=== PATIENT | male | born 1955 | race Caucasian/White ===

== ENCOUNTER 2021-10-25 08:53 | Observation (INO) ==
[2021-10-25] MEDS ORDERED: REMDESIVIR 100 MG in NS 250 ML IV 250 ML IV ONE (09:00)
[2021-10-25 12:04] LABS: BASOPHILS # (AUTO) 0.1 X10^3/uL (0.0-0.1); BASOPHILS % (AUTO) 0.5 % (0.2-1.0); EOSINOPHILS % (AUTO) 0.1 % (0.9-2.9); HEMATOCRIT 33.3 % (42.0-54.0); HEMOGLOBIN 10.9 g/dL (13.5-18.0); LYMPHOCYTES # (AUTO) 1.4 X10^3/uL (1.3-2.9); LYMPHOCYTES % (AUTO) 10.6 % (21.0-51.0); MEAN CORPUSCULAR HEMOGLOBIN 26.8 pg (27.0-34.0); MEAN CORPUSCULAR HGB CONC 32.6 g/dL (33.0-35.0); MEAN PLATELET VOLUME 8.8 fL (7.4-11.0); MONOCYTES # (AUTO) 3.8 x10^3/uL (0.3-0.8); MONOCYTES % (AUTO) 28.2 % (0.0-13.0); NEUTROPHILS # (AUTO) 8.2 x10^3/uL (2.2-4.8); NEUTROPHILS % (AUTO) 60.6 % (42.0-75.0); RED BLOOD COUNT 4.06 X10^6/uL (4.7-6.0); RED CELL DISTRIBUTION WIDTH 15.7 % (11.6-16.5); WHITE BLOOD COUNT 13.6 X10^3/uL (3.6-10.0)
[2021-10-25 12:32] LABS: ALANINE AMINOTRANSFERASE 20 Units/L (12-78); ALBUMIN 1.9 g/dL (3.4-5.0); ALKALINE PHOSPHATASE 302 Units/L (46-116); ASPARTATE AMINO TRANSFERASE 30 Units/L (15-37); BLOOD UREA NITROGEN 13 mg/dL (7-18); CALCIUM 11.1 mg/dL (8.5-10.1); CHLORIDE 99 mmol/L (98-107); CKMB % 3.7 % (<4); COR CA(FOR HYPOALB) 12.8 mg/dL (8.5-10.1); COR NA(FOR HYPERGLY) 140 mmol/L (136-145); CREATINE KINASE 27 Units/L (39-308); CREATINE KINASE MB < 1.0 ng/mL (0-4.0); CREATININE 0.78 mg/dL (0.70-1.30); SODIUM 137 mmol/L (136-145); TOTAL PROTEIN 8.1 g/dL (6.4-8.2); eGFR NON BLACK RACES > 60 (>60)
[2021-10-25] MEDS ORDERED: NovoLIN R (or HumuLIN R) SC PRN (12:38)
[2021-10-25] MEDS ORDERED: TYLENOL 325 MG TAB PO PRN (12:38)
[2021-10-25] MEDS ORDERED: FLEXERIL TAB 10 MG PO PRN (13:48)
--- NOTE | 2021-10-25 13:52 | RAD ---
HISTORY:COVID-19 positiveStudy: Single view chestComparison:NoneFindings:There is a possible right pneumothorax versus prominent skin fold. Lungs are otherwise clear. Heart size is normal. No effusion. Soft tissues are intact.IMPRESSION:Possible right apical pneumothorax. Chest CT recommended for further evaluation.Electronically signed by: VARSHA LONDON (Oct 25, 2021 13:51:02)
[2021-10-25] MEDS ORDERED: FLOMAX PO SCH (14:00)
[2021-10-25 14:01] VITALS: BMI 18.9
[2021-10-25] MEDS ORDERED: NS 100 ML IV 100 ML ONE (14:02)
[2021-10-25 14:04] LABS: BAND NEUTROPHILS % 8 % (0-10); METAMYELOCYTES % 8; PLATELET MORPHOLOGY COMMENT NORMAL (NORMAL)
[2021-10-25 14:05] LABS: HYPOCHROMASIA SLIGHT
[2021-10-25] MEDS: TENORMIN PO SCH (14:15)
[2021-10-25] MEDS: VITAMIN D3 25 mcg (1,000 UNITS) PO SCH (14:15)
[2021-10-25] MEDS: LR 1,000 ML IV 1,000 ML IV SCH (14:16)
[2021-10-25] MEDS ORDERED: REMDESIVIR 200 MG in NS 100 ML IV 140 ML IV ONE (14:33)
[2021-10-25] MEDS ORDERED: SOLU-Medrol 125 MG VIAL IVP ONE (14:34)
[2021-10-25] MEDS ORDERED: BENADRYL INJ 50 MG VIAL IV ONE (14:34)
[2021-10-25] MEDS ORDERED: REMDESIVIR 200 MG in NS 250 ML IV 250 ML IV NR (15:00)
--- NOTE | 2021-10-25 15:09 | CT ---
EXAM: CTA CHEST WITH INTRAVENOUS CONTRASTHISTORY: Elevated D-dimer.TECHNIQUE: Spiral axial CT images are obtained through the chest with the administration of intravenous contrast. Coronal, sagittal and 3D MIP images are reformatted.DOSIMETRY: Total DLP 575.5 mGycm; CTDI 34.8 mGyCOMPARISON: CXR dated October 25, 2021.FINDINGS:CARDIOVASCULAR: There is no evidence for pulmonary embolic disease. The heart size and mediastinal vascular structures are within normal limits. There is no significant aortic or coronary atherosclerosis seen. No thoracic aortic aneurysm or dissection is noted.MEDIASTINUM AND KEMAR: No mass lesion, emphysema, or abnormal fluid collection is seen. There is nonspecific shotty mediastinal and hilar lymphadenopathy, presumed reactive lymphadenopathy.LUNGS: There is no acute parenchymal infiltrate, lung nodule, or endobronchial obstructing lesion seen. No pleural effusion or pneumothorax is evident.CHEST WALL: There are no chest wall lesions seen. Multilevel DDD is seen throughout the middle and distal thoracic spine. The visualized bony structures are within normal limits. No axillary lymphadenopathy is noted.UPPER ABDOMEN: Limited views through the upper abdomen demonstrate no gross acute abnormality. There is an approximately 3.6 cm exophytic posterior left renal cyst. Nonspecific shotty superior periceliac lymphadenopathy, with an approximately 1.9 cm x 1.5 cm lymph node identified (axial image 146). Splenomegaly (16.5 cm CC); nonspecific finding; rule out lymphoma.IMPRESSION:1. No evidence for pulmonary embolic disease.2. No evidence for aortic aneurysm or aortic dissection.3. No acute parenchymal infiltrate, pleural effusion, endobronchial obstructing lesion or pneumothorax seen.4. Nonspecific shotty mediastinal and hilar lymphadenopathy.5. Nonspecific shotty superior periceliac lymphadenopathy, with an approximately 1.9 cm x 1.5 cm lymph node identified (axial image 146).6. Splenomegaly (16.5 cm CC); nonspecific finding; rule out lymphoma.Electronically signed by: Marissa Donahue (Oct 25, 2021 15:07:39)
[2021-10-25] MEDS ORDERED: ROBITUSSIN DM PO PRN (15:10)
[2021-10-25] MEDS ORDERED: TESSALON PERLES PO PRN (15:10)
[2021-10-25] MEDS: VITAMIN A PO SCH (16:00)
[2021-10-25] MEDS: VITAMIN C PO SCH (16:00)
--- NOTE | 2021-10-25 16:04 | DR.H&P ---
H&P History & Physical for Day of: H&P Date: 10/25/21 Chief Complaint Chief Complaint: cough, weakness, positive covid test Allergies Allergies Allergy/AdvReac Type Severity Reaction Status Date / Time Penicillins Allergy Verified 10/25/21 12:53 History of Present Illness History of Present Illness: Mr Garcia is a 66y/o male with a PMH of HTN, Type 2 DM and PE presented with worsening cough, fever and generalized weakness. He did a at home covid test today which was positive. He reports being sick for the past 2 days. Denies known exposure. Denies sputum, SOB or chest pain. He reports feeling weak with any exertion and not able to walk without assistance for the past week. 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 He had biopsy and PET scan done earlier this week with Dr Baez, awaiting results. Patient has been having work-up for this leg mass for the past 4-6 weeks. [facility]. He reports wt loss 30-40 lbs in the past 4-6 weeks. He reports normal appetite, denies N/V/D. He is currently on room air with sats above 95%. Patient denies prev hx of COVID infection, he is fully vaccinated. Labs/imaging reviewed CTA- negative for infiltrate, effusion or PE Plan: Admit to ICU protocol for COVID-19. Start Remdesivir, nebs, pulmicort and IS. Monitor respiratory status closely. Oxygen prn to keep sats > 92%. Start vitamins. Resume home medications. Start diabetic diet. Start hydration. Dr Val blunt has been consulted for the left leg mass. He does not plan on doing any intervention at this time until patient recovers from covid infection. Check anemia panel. Monitor AM labs/imaging. Past Medical History Past Medical History: Anemia, Diabetes and Hypertension Additional Medical History: PE Past Surgical History Surgical History: Other Family History Family Medical History: [place] Social History Does patient currently use any type of tobacco product: No Have you used tobacco products in the last 12 months: No Type of Tobacco Use: None Does any household member use tobacco: No Prescription drug monitoring program results: PDMP reviewed and no concerns identified Medications Home Medications: Penicillins Allergy (Verified 10/25/21 12:53) CONTINUE taking the following medications alogliptin 25 mg PO DAILY 10/25/21 [History] amlodipine 5 mg PO BID 10/25/21 [History] atenolol 100 mg PO DAILY 10/25/21 [History] cetirizine 10 mg PO DAILY 10/25/21 [History] cholecalciferol (vitamin D3) 25 mcg PO DAILY 10/25/21 [History] cyclobenzaprine 10 mg PO TID PRN 10/25/21 [History] empagliflozin 25 mg PO DAILY 10/25/21 [History] glipizide 5 mg PO BID 10/25/21 [History] metformin 500 mg PO BID 10/25/21 [History] oxycodone-acetaminophen 1 tab PO Q6H 10/25/21 [History] rivaroxaban 10 mg PO DAILY 10/25/21 [History] rivaroxaban 10 mg PO DAILY 10/25/21 [History] tamsulosin 0.4 mg PO DAILY 10/25/21 [History] Labs Result Diagrams: 10/25/21 11:45 10/25/21 11:45 Labs: Laboratory WBC 13.6 X10^3/uL (3.6-10.0) H 10/25/21 11:45 RBC 4.06 X10^6/uL (4.7-6.0) L 10/25/21 11:45 Hgb 10.9 g/dL (13.5-18.0) L 10/25/21 11:45 Hct 33.3 % (42.0-54.0) L 10/25/21 11:45 MCV 82.0 fL (80.0-100.0) 10/25/21 11:45 MCH 26.8 pg (27.0-34.0) L 10/25/21 11:45 MCHC 32.6 g/dL (33.0-35.0) L 10/25/21 11:45 RDW 15.7 % (11.6-16.5) 10/25/21 11:45 Plt Count 210 X10^3/uL (150.0-450.0) 10/25/21 11:45 Plt Count Comment Adequate (ADEQUATE) 10/25/21 11:45 MPV 8.8 fL (7.4-11.0) 10/25/21 11:45 Neut % (Auto) 60.6 % (42.0-75.0) 10/25/21 11:45 Lymph % (Auto) 10.6 % (21.0-51.0) L 10/25/21 11:45 [place] % (Auto) 28.2 % (0.0-13.0) H 10/25/21 11:45 Eos % (Auto) 0.1 % (0.9-2.9) L 10/25/21 11:45 Baso % (Auto) 0.5 % (0.2-1.0) 10/25/21 11:45 Neut # (Auto) 8.2 x10^3/uL (2.2-4.8) H 10/25/21 11:45 Lymph # (Auto) 1.4 X10^3/uL (1.3-2.9) 10/25/21 11:45 [place] # (Auto) 3.8 x10^3/uL (0.3-0.8) H 10/25/21 11:45 Eos # (Auto) 0.0 x10^3/uL (0.0-0.2) 10/25/21 11:45 Baso # (Auto) 0.1 X10^3/uL (0.0-0.1) 10/25/21 11:45 Absolute Nucleated RBC 0.0 /100WBC 10/25/21 11:45 Total Counted 100 10/25/21 11:45 Neutrophils % (Manual) 30 % (39-76) L 10/25/21 11:45 Band Neutrophils % 8 % (0-10) 10/25/21 11:45 Lymphocytes % (Manual) 32 % (13-43) 10/25/21 11:45 Monocytes % (Manual) 22 % (4-9) H 10/25/21 11:45 Metamyelocytes % 8 10/25/21 11:45 Plt Morphology Comment Normal (NORMAL) 10/25/21 11:45 RBC Morphology Abnormal (NORMAL) 10/25/21 11:45 Hypochromasia Slight A 10/25/21 11:45 D-Dimer 2.55 ug/ml (0.0-0.57) H* 10/25/21 11:45 Sodium 137 mmol/L (136-145) 10/25/21 11:45 Corrected Sodium 140 mmol/L (136-145) 10/25/21 11:45 Potassium 5.0 mmol/L (3.5-5.1) 10/25/21 11:45 Chloride 99 mmol/L (98-107) 10/25/21 11:45 Carbon Dioxide 29.0 mmol/L (21-32) 10/25/21 11:45 BUN 13 mg/dL (7-18) 10/25/21 11:45 Creatinine 0.78 mg/dL (0.70-1.30) 10/25/21 11:45 Est GFR (MDRD) Af Amer > 60 (>60) 10/25/21 11:45 Est GFR (MDRD) Non-Af > 60 (>60) 10/25/21 11:45 Glucose 212 mg/dL (65-99) H 10/25/21 11:45 Calcium 11.1 mg/dL (8.5-10.1) H 10/25/21 11:45 Corrected Calcium 12.8 mg/dL (8.5-10.1) H 10/25/21 11:45 Total Bilirubin 0.40 mg/dL (0.2-1.0) 10/25/21 11:45 AST 30 Units/L (15-37) 10/25/21 11:45 ALT 20 Units/L (12-78) 10/25/21 11:45 Alkaline Phosphatase 302 Units/L (46-116) H 10/25/21 11:45 Creatine Kinase 27 Units/L (39-308) L 10/25/21 11:45 CK-MB (CK-2) < 1.0 ng/mL (0-4.0) 10/25/21 11:45 CK/CKMB % Calc 3.7 % (<4) 10/25/21 11:45 Troponin I High Sens < 4.0 ng/L (4.0-60.0) L 10/25/21 11:45 C-Reactive Protein 311.50 mg/L (0-3.0) H 10/25/21 11:45 Total Protein 8.1 g/dL (6.4-8.2) 10/25/21 11:45 Albumin 1.9 g/dL (3.4-5.0) L 10/25/21 11:45 Globulin 6.2 g/dL (2.5-4.5) H 10/25/21 11:45 Albumin/Globulin Ratio 0.3 Ratio (1.1-2.1) L 10/25/21 11:45 Review of Systems Constitutional: Fever, Chills, Weakness and Malaise Eyes: No Symptoms Reported ENT: Nose Congestion and Throat Pain Respiratory: Cough, Dry and SOB with Excertion Cardiovascular: No Symptoms Reported Gastrointestinal: No Symptoms Reported Genitourinary: No Symptoms Reported Musculoskeletal: Leg Pain Skin: No Symptoms Reported Neurological: No Symptoms Reported Physical Exam Vital Signs: Temperature 100.0 F Pulse Rate [Apical] 104 Respiratory Rate 28 Blood Pressure [Right Arm] 107/62 O2 Sat by Pulse Oximetry 96 Oriented: Normal Eyes: Normal Ear: Normal Nose: Normal Throat: Dry Respiratory: Clear Throughout Cardiovascular: Normal Auscultation: Bowel Sounds: Normal Palpation: Normal Tenderness: Normal Skin: Normal Musculoskeletal: Left and Leg (mass noted on the left thigh area, limited leg ROM ) Psychiatric: Normal Mood Description: Appropriate Affect: Normal Speech Pattern: Clear and Appropriate Assessment/Plan (1) COVID-19: Status: Acute (2) Generalized weakness: Status: Acute (3) Anemia: Qualifiers: Anemia type: unspecified type Qualified Code(s): D64.9 - Anemia, unspecified Status: Acute (4) Leg mass: Qualifiers: Laterality: left Qualified Code(s): R22.42 - Localized swelling, mass and lump, left lower limb Status: Acute (5) Sarcoma: Status: Acute (6) HTN (hypertension): Qualifiers: Hypertension type: primary hypertension Qualified Code(s): I10 - Essential (primary) hypertension Status: Acute (7) Type 2 diabetes mellitus: Qualifiers: Diabetes mellitus complication status: without complication Diabetes mellitus assisted insulin use: without assisted use Qualified Code(s): E11.9 - Type 2 diabetes mellitus without complications Status: Acute Review H&P Reviewed: Yes Patient was examined?: Yes
[2021-10-25] MEDS: PERCOCET TAB 5/325 MG PO SCH (18:00)
[2021-10-25] MEDS: SNACK - Diabetic Appropriate PO SCH (20:00)
[2021-10-25] MEDS: PULMICORT NEB TX 0.5 MG NEB SCH (20:25)
[2021-10-25] MEDS: XARELTO PO SCH (20:42)
[2021-10-25] MEDS: GLUCOTROL PO SCH (20:42)
[2021-10-25] MEDS ORDERED: DUONEB 0.5 MG/3 MG (3 mL) NEB SCH (21:00)
--- NOTE | 2021-10-25 21:16 | DR.CONSULT ---
CONSULT Consultation for Day of: Date: 10/25/21 Chief Complaint Chief Complaint: Generalized weakness and cough. 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 Allergies Allergies Allergy/AdvReac Type Severity Reaction Status Date / Time Penicillins Allergy Verified 10/25/21 12:53 History of Present Illness History of Present Illness: 66 year old male being evaluated by me for a mass to the upper outer thigh approximately 15 by 10 by 8 cm. 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 He underwent core needle biopsy of this in my office on Friday of this week . PET CT scan was done Friday and the results should show no obvious metastatic disease however the left thigh is markedly positive. Question of L-3 osteoarthritis and recommended MRI for this. Patient was to see me in follow up tomorrow but his daughter called saying that he had generalized weakness and could not get out of bed. Home test for covid-19 was positive . Patient admitted for inpatient treatment of Covid positive disease . 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 Pathology is still pending. Past Medical History Past Medical History: Anemia, Coronary Artery Disease, Diabetes and Hypertension Additional Medical History: PE, hx of CVA Past Surgical History Surgical History: Other Family History Family Medical History: [place] Social History Does patient currently use any type of tobacco product: No Have you used tobacco products in the last 12 months: No Type of Tobacco Use: None Does any household member use tobacco: No Medications Home Medications: Penicillins Allergy (Verified 10/25/21 12:53) CONTINUE taking the following medications alogliptin 25 mg PO DAILY 10/25/21 [History] amlodipine 5 mg PO BID 10/25/21 [History] atenolol 100 mg PO DAILY 10/25/21 [History] cetirizine 10 mg PO DAILY 10/25/21 [History] cholecalciferol (vitamin D3) 25 mcg PO DAILY 10/25/21 [History] cyclobenzaprine 10 mg PO TID PRN 10/25/21 [History] empagliflozin 25 mg PO DAILY 10/25/21 [History] glipizide 5 mg PO BID 10/25/21 [History] metformin 500 mg PO BID 10/25/21 [History] oxycodone-acetaminophen 1 tab PO Q6H 10/25/21 [History] rivaroxaban 10 mg PO DAILY 10/25/21 [History] rivaroxaban 10 mg PO DAILY 10/25/21 [History] tamsulosin 0.4 mg PO DAILY 10/25/21 [History] Review of Systems Constitutional: See HPI Eyes: No Symptoms Reported ENT: No Symptoms Reported Respiratory: Cough Cardiovascular: No Symptoms Reported and Light Headedness Gastrointestinal: No Symptoms Reported Genitourinary: No Symptoms Reported Musculoskeletal: Leg Pain (left upper outer thigh Mass ) Skin: No Symptoms Reported Neurological: No Symptoms Reported Physical Exam Vital Signs: Temperature 100.0 F Pulse Rate [Apical] 103 Respiratory Rate 17 Blood Pressure [Right Arm] 108/67 O2 Sat by Pulse Oximetry 94 Oriented: Normal, Time, Person and Place Eyes: Normal Ear: Normal Throat: Normal Respiratory: Rhonchi Throughout Cardiovascular: Normal : Normal Auscultation: Bowel Sounds: Normal Palpation: Normal Tenderness: Normal Skin: Normal Musculoskeletal: Thigh (large left thigh mass) Psychiatric: Normal Mood Description: Calm Speech Pattern: Clear Plan (1) COVID-19: Status: Acute Plan: Remdesivir and steroids (2) Generalized weakness: Status: Acute (3) Anemia: Status: Acute Qualifiers: Anemia type: unspecified type Qualified Code(s): D64.9 - Anemia, unspecified (4) Leg mass: Status: Acute Qualifiers: Laterality: left Qualified Code(s): R22.42 - Localized swelling, mass and lump, left lower limb (5) Sarcoma: Status: Acute Plan: awake biopsy results . Willplan resection when covid negative (6) HTN (hypertension): Status: Acute Qualifiers: Hypertension type: primary hypertension Qualified Code(s): I10 - Essential (primary) hypertension Plan: home medications (7) Type 2 diabetes mellitus: Status: Acute Qualifiers: Diabetes mellitus complication status: without complication Diabetes mellitus jail insulin use: without jail use Qualified Code(s): E11.9 - Type 2 diabetes mellitus without complications Plan: treat as per Hospital service (8) History of pulmonary embolus (PE): Status: Acute Plan: continue Eliquis
[2021-10-26] MEDS: PERCOCET TAB 5/325 MG PO SCH ×5 (00:30→22:00)
[2021-10-26] MEDS: LR 1,000 ML IV 1,000 ML IV SCH (03:14)
[2021-10-26 05:31] LABS: BASOPHILS # (AUTO) 0.1 X10^3/uL (0.0-0.1); BASOPHILS % (AUTO) 0.9 % (0.2-1.0); EOSINOPHILS % (AUTO) 0.1 % (0.9-2.9); HEMATOCRIT 28.3 % (42.0-54.0); HEMOGLOBIN 9.4 g/dL (13.5-18.0); LYMPHOCYTES # (AUTO) 1.6 X10^3/uL (1.3-2.9); LYMPHOCYTES % (AUTO) 18.9 % (21.0-51.0); MEAN CORPUSCULAR HGB CONC 33.2 g/dL (33.0-35.0); MEAN CORPUSCULAR VOLUME 81.6 fL (80.0-100.0); MEAN PLATELET VOLUME 8.7 fL (7.4-11.0); MONOCYTES # (AUTO) 3.1 x10^3/uL (0.3-0.8); MONOCYTES % (AUTO) 35.5 % (0.0-13.0); NEUTROPHILS # (AUTO) 3.9 x10^3/uL (2.2-4.8); NEUTROPHILS % (AUTO) 44.6 % (42.0-75.0); RED BLOOD COUNT 3.47 X10^6/uL (4.7-6.0); WHITE BLOOD COUNT 8.7 X10^3/uL (3.6-10.0)
[2021-10-26 05:47] LABS: ALANINE AMINOTRANSFERASE 17 Units/L (12-78); ALBUMIN 1.7 g/dL (3.4-5.0); ALKALINE PHOSPHATASE 233 Units/L (46-116); ASPARTATE AMINO TRANSFERASE 29 Units/L (15-37); BLOOD UREA NITROGEN 12 mg/dL (7-18); CALCIUM 10.2 mg/dL (8.5-10.1); CARBON DIOXIDE 28.6 mmol/L (21-32); CHLORIDE 103 mmol/L (98-107); COR NA(FOR HYPERGLY) 140 mmol/L (136-145); CREATININE 0.72 mg/dL (0.70-1.30); SODIUM 140 mmol/L (136-145); TOTAL PROTEIN 6.9 g/dL (6.4-8.2); eGFR NON BLACK RACES > 60 (>60)
[2021-10-26] MEDS: VITAMIN A PO SCH (09:02)
[2021-10-26] MEDS: XARELTO PO SCH (09:02)
[2021-10-26] MEDS: GLUCOTROL PO SCH ×2 (09:02→20:51)
[2021-10-26] MEDS: REMDESIVIR 100 MG in NS 250 ML IV 250 ML IV SCH (09:02)
[2021-10-26] MEDS: ALOGLIPTIN 25 MG PO SCH (09:02)
[2021-10-26] MEDS: PULMICORT NEB TX 0.5 MG NEB SCH ×2 (09:02→20:36)
[2021-10-26] MEDS: TENORMIN PO SCH (09:02)
[2021-10-26] MEDS: VITAMIN D3 25 mcg (1,000 UNITS) PO SCH (09:02)
--- NOTE | 2021-10-26 09:40 | PCM.PROG ---
Progress Note Progress Note for Day of Date of Exam: 10/26/21 Subjective Subjective: Patient seen at bedside, no acute events overnight. He states he feels better this morning. He remains on room air with sats > 92%. He has been coughing up mucus after getting the neb treatments. Denies SOB. He has been afebrile overnight. Denies N/V/D. He still feels weak, not able to get out of bed without assistance. Labs reviewed Plan: continue IV Remdesivir, will DC IVF. Patient has been tolerating oral intake, normal renal function. Continue nebs, pulmicort and IS. Order sputum Cx. Follow recommendations from Dr Baez, patient has mentioned about getting an MRI today. Will check with Dr Baez. He plans to do the surgery next Thurs to remove the left leg soft tissue mass. PT/OT as tolerated. Monitor AM labs/imaging. Past Medical Family Social History Past Med/Fam/Surg Hx: No changes since H&P Allergies: Allergies Penicillins Allergy (Verified 10/25/21 12:53) Review of Systems ROS: No change since H&P Vital Signs and I&O's Vital Signs: Temperature 98.8 F Pulse Rate [Apical] 103 Pulse Rate 105 Respiratory Rate 24 Blood Pressure [Right Arm] 108/62 O2 Sat by Pulse Oximetry 96 Intake and Output: Intake & Output 10/23/21 10/24/21 10/25/21 10/26/21 23:59 23:59 23:59 23:59 Intake Total 1400 / 1400 995 / 995 Output Total 775 / 775 275 / 275 Balance 625 / 625 720 / 720 Physical Exam Oriented: Normal Eyes: Normal Ear: Normal Nose: Normal Throat: Normal Respiratory: Normal Cardiovascular: Normal Auscultation: Bowel Sounds: Normal Tenderness: Normal Skin: Normal Musculoskeletal: Thigh (large left thigh mass) Psychiatric: Normal Mood Description: Calm Affect: Normal Speech Pattern: Clear Laboratory and Diagnostics Result Diagrams: 10/26/21 04:55 10/26/21 04:55 Labs: Laboratory WBC 8.7 X10^3/uL (3.6-10.0) 10/26/21 04:55 RBC 3.47 X10^6/uL (4.7-6.0) L 10/26/21 04:55 Hgb 9.4 g/dL (13.5-18.0) L 10/26/21 04:55 Hct 28.3 % (42.0-54.0) L 10/26/21 04:55 MCV 81.6 fL (80.0-100.0) 10/26/21 04:55 MCH 27.0 pg (27.0-34.0) 10/26/21 04:55 MCHC 33.2 g/dL (33.0-35.0) 10/26/21 04:55 RDW 16.0 % (11.6-16.5) 10/26/21 04:55 Plt Count 149 X10^3/uL (150.0-450.0) L 10/26/21 04:55 Plt Count Comment Cancelled 10/26/21 04:55 MPV 8.7 fL (7.4-11.0) 10/26/21 04:55 Neut % (Auto) 44.6 % (42.0-75.0) 10/26/21 04:55 Lymph % (Auto) 18.9 % (21.0-51.0) L 10/26/21 04:55 [place] % (Auto) 35.5 % (0.0-13.0) H 10/26/21 04:55 Eos % (Auto) 0.1 % (0.9-2.9) L 10/26/21 04:55 Baso % (Auto) 0.9 % (0.2-1.0) 10/26/21 04:55 Neut # (Auto) 3.9 x10^3/uL (2.2-4.8) 10/26/21 04:55 Lymph # (Auto) 1.6 X10^3/uL (1.3-2.9) 10/26/21 04:55 [place] # (Auto) 3.1 x10^3/uL (0.3-0.8) H 10/26/21 04:55 Eos # (Auto) 0.0 x10^3/uL (0.0-0.2) 10/26/21 04:55 Baso # (Auto) 0.1 X10^3/uL (0.0-0.1) 10/26/21 04:55 Absolute Nucleated RBC 0.1 /100WBC 10/26/21 04:55 Total Counted Cancelled 10/26/21 04:55 Neutrophils % (Manual) Cancelled 10/26/21 04:55 Band Neutrophils % Cancelled 10/26/21 04:55 Lymphocytes % (Manual) Cancelled 10/26/21 04:55 Monocytes % (Manual) Cancelled 10/26/21 04:55 Eosinophils % (Manual) Cancelled 10/26/21 04:55 Basophils % (Manual) Cancelled 10/26/21 04:55 Metamyelocytes % Cancelled 10/26/21 04:55 Myelocytes % Cancelled 10/26/21 04:55 Promyelocytes % Cancelled 10/26/21 04:55 Nucleated RBCs Cancelled 10/26/21 04:55 Atypical Lymphocytes Cancelled 10/26/21 04:55 Blast Cells Cancelled 10/26/21 04:55 Smudge Cells Cancelled 10/26/21 04:55 Toxic Granulation Cancelled 10/26/21 04:55 Dohle Bodies Cancelled 10/26/21 04:55 Yanely Rods Cancelled 10/26/21 04:55 Plt Clumps, EDTA Cancelled 10/26/21 04:55 Giant Platelets Cancelled 10/26/21 04:55 Plt Morphology Comment Cancelled 10/26/21 04:55 RBC Morphology Cancelled 10/26/21 04:55 Dimorphic RBCs Cancelled 10/26/21 04:55 Polychromasia Cancelled 10/26/21 04:55 Hypochromasia Cancelled 10/26/21 04:55 Poikilocytosis Cancelled 10/26/21 04:55 Basophilic Stippling Cancelled 10/26/21 04:55 Anisocytosis Cancelled 10/26/21 04:55 Microcytosis Cancelled 10/26/21 04:55 Macrocytosis Cancelled 10/26/21 04:55 Spherocytes Cancelled 10/26/21 04:55 Pappenheimer Bodies Cancelled 10/26/21 04:55 Sickle Cells Cancelled 10/26/21 04:55 Target Cells Cancelled 10/26/21 04:55 Tear Drop Cells Cancelled 10/26/21 04:55 Ovalocytes Cancelled 10/26/21 04:55 Stomatocytes Cancelled 10/26/21 04:55 Helmet Cells Cancelled 10/26/21 04:55 [place] Bodies Cancelled 10/26/21 04:55 [place] Rings Cancelled 10/26/21 04:55 [place] Cells Cancelled 10/26/21 04:55 Crenated Cell Cancelled 10/26/21 04:55 Acanthocytes (Spur) Cancelled 10/26/21 04:55 [place] Cancelled 10/26/21 04:55 Schistocytes Cancelled 10/26/21 04:55 D-Dimer 2.55 ug/ml (0.0-0.57) H* 10/25/21 11:45 Sodium 140 mmol/L (136-145) 10/26/21 04:55 Corrected Sodium 140 mmol/L (136-145) 10/26/21 04:55 Potassium 3.8 mmol/L (3.5-5.1) 10/26/21 04:55 Chloride 103 mmol/L (98-107) 10/26/21 04:55 Carbon Dioxide 28.6 mmol/L (21-32) 10/26/21 04:55 BUN 12 mg/dL (7-18) 10/26/21 04:55 Creatinine 0.72 mg/dL (0.70-1.30) 10/26/21 04:55 Est GFR (MDRD) Af Amer > 60 (>60) 10/26/21 04:55 Est GFR (MDRD) Non-Af > 60 (>60) 10/26/21 04:55 Glucose 119 mg/dL (65-99) H 10/26/21 04:55 POC Glucose (mg/dL) 161 mg/dL (65-99) H 10/25/21 19:58 Calcium 10.2 mg/dL (8.5-10.1) H 10/26/21 04:55 Corrected Calcium 12.0 mg/dL (8.5-10.1) H 10/26/21 04:55 Iron 23 ug/dL (50-175) L 10/25/21 11:45 Transferrin 156 mg/dL (202-364) L 10/25/21 11:45 Ferritin 3486 ng/mL (26-388) H 10/25/21 11:45 Total Bilirubin 0.30 mg/dL (0.2-1.0) 10/26/21 04:55 AST 29 Units/L (15-37) 10/26/21 04:55 ALT 17 Units/L (12-78) 10/26/21 04:55 Alkaline Phosphatase 233 Units/L (46-116) H 10/26/21 04:55 Creatine Kinase 27 Units/L (39-308) L 10/25/21 11:45 CK-MB (CK-2) < 1.0 ng/mL (0-4.0) 10/25/21 11:45 CK/CKMB % Calc 3.7 % (<4) 10/25/21 11:45 Troponin I High Sens < 4.0 ng/L (4.0-60.0) L 10/25/21 11:45 C-Reactive Protein 230.70 mg/L (0-3.0) H 10/26/21 04:55 Total Protein 6.9 g/dL (6.4-8.2) 10/26/21 04:55 Albumin 1.7 g/dL (3.4-5.0) L 10/26/21 04:55 Globulin 5.2 g/dL (2.5-4.5) H 10/26/21 04:55 Albumin/Globulin Ratio 0.3 Ratio (1.1-2.1) L 10/26/21 04:55 Vitamin B12 831 pg/mL (193-986) 10/25/21 11:45 Folate 6.2 ng/mL (>8.6) L 10/25/21 11:45 Plan (1) COVID-19: Status: Acute (2) Generalized weakness: Status: Acute (3) Anemia: Status: Acute Qualifiers: Anemia type: unspecified type Qualified Code(s): D64.9 - Anemia, unspecified (4) Leg mass: Status: Acute Qualifiers: Laterality: left Qualified Code(s): R22.42 - Localized swelling, mass and lump, left lower limb (5) Sarcoma: Status: Acute (6) HTN (hypertension): Status: Acute Qualifiers: Hypertension type: primary hypertension Qualified Code(s): I10 - Essential (primary) hypertension (7) Type 2 diabetes mellitus: Status: Acute Qualifiers: Diabetes mellitus complication status: without complication Diabetes mellitus usp insulin use: without terminal manager use Qualified Code(s): E11.9 - Type 2 diabetes mellitus without complications (8) History of pulmonary embolus (PE): Status: Acute
[2021-10-26] MEDS: VITAMIN C PO SCH (10:32)
[2021-10-26] MEDS: DUONEB 0.5 MG/3 MG (3 mL) NEB SCH ×2 (14:08→20:36)
--- NOTE | 2021-10-26 16:12 | MRI ---
HISTORYQUESTIONABLE CARCINOMA WITH METASTASIS, chronic low back pain, no known injurySTUDYMRI LUMBAR W W/O IV contrastCOMPARISONNoneTECHNIQUEMultiplan ar multisequence MRI of the lumbar spine was obtained without and with IV contrast. 19 cc MultiHance IV contrast.FINDINGSThe conus terminates at the L1 level. No spondylolisthesis. No compression fracture is seen. There is abnormal signal present within the S1 and S2 segments. The small foci of measure approximately 1.5 and 0.9 cm in greatest sagittal dimension. The have a stippled appearance suggesting possible benign hemangioma are mildly edematous on STIR series. Following contrast administration, there is mild enhancement of these lesions, which is not unexpected for benign hemangioma. Correlation with nuclear medicine bone scan is recommended.There is red marrow conversion in the bones. Fatty degenerative endplate changes are seen at L2-3 and L1-2. There is no abnormal enhancement of the conus or filum terminale. Probable benign renal cysts are partially included. Recommend confirmation with contrast enhanced CT of the abdomen and pelvis.T12 -- L1: No significant stenosis.L1 -- L2: Facet arthropathy is seen with no posterior element hypertrophy. There is mild right central disc bulge causing slight thecal sac effacement.L2 -- L3: Facet arthropathy is seen without posterior element hypertrophy. Mild posterior osteophytes are seen. Little neural foraminal narrowing is seen, right greater than left. There is slight thecal sac effacement.L3 -- L4: Mild facet arthropathy and posterior element hypertrophy. Likely mild broad central disc bulge. Little central canal and neural foraminal narrowing is seen.L4 -- L5: Mild posterior element hypertrophy is seen, right greater than left. There is mild central disc bulge. Mild thecal sac effacement is seen. Mild neural foraminal narrowing is seen.L5 -- S1:Mild facet hypertrophy is seen, left greater than right. Possible mild central disc bulge. Little thecal sac effacement. Moderate left-sided and mild right-sided neural foraminal narrowing is seen.IMPRESSIONProbable benign hemangioma at the S1 and S2 levels. Recommend confirmation with nuclear medicine bone scan as signal characteristics are slightly atypical.Probable cysts in the kidneys. Recommend further evaluation with contrast enhanced CT of the abdomen and pelvis.Mild facet arthropathy is seen in the lumbar spine with mild disc bulges. No disc herniations are seen. No thecal sac or nerve root compression is seen.Electronically signed by: Bora Raygoza (Oct 26, 2021 16:10:55)
[2021-10-26] MEDS: SNACK - Diabetic Appropriate PO SCH (20:00)
[2021-10-26] MEDS: FLOMAX PO SCH (20:51)
[2021-10-27 04:22] VITALS: BP 107/65
[2021-10-27] MEDS: DUONEB 0.5 MG/3 MG (3 mL) NEB SCH ×3 (05:13→14:53)
[2021-10-27 05:17] LABS: BASOPHILS # (AUTO) 0.1 X10^3/uL (0.0-0.1); BASOPHILS % (AUTO) 0.9 % (0.2-1.0); EOSINOPHILS % (AUTO) 0.1 % (0.9-2.9); HEMATOCRIT 25.8 % (42.0-54.0); HEMOGLOBIN 8.5 g/dL (13.5-18.0); LYMPHOCYTES # (AUTO) 1.4 X10^3/uL (1.3-2.9); LYMPHOCYTES % (AUTO) 20.1 % (21.0-51.0); MEAN CORPUSCULAR HGB CONC 33.1 g/dL (33.0-35.0); MEAN CORPUSCULAR VOLUME 81.4 fL (80.0-100.0); MEAN PLATELET VOLUME 8.8 fL (7.4-11.0); MONOCYTES # (AUTO) 2.6 x10^3/uL (0.3-0.8); MONOCYTES % (AUTO) 37.6 % (0.0-13.0); NEUTROPHILS # (AUTO) 2.8 x10^3/uL (2.2-4.8); NEUTROPHILS % (AUTO) 41.3 % (42.0-75.0); RED BLOOD COUNT 3.17 X10^6/uL (4.7-6.0); WHITE BLOOD COUNT 6.9 X10^3/uL (3.6-10.0)
[2021-10-27 05:26] LABS: ALANINE AMINOTRANSFERASE 16 Units/L (12-78); ALBUMIN 1.6 g/dL (3.4-5.0); ALKALINE PHOSPHATASE 204 Units/L (46-116); ASPARTATE AMINO TRANSFERASE 31 Units/L (15-37); BLOOD UREA NITROGEN 11 mg/dL (7-18); CALCIUM 9.7 mg/dL (8.5-10.1); CARBON DIOXIDE 28.3 mmol/L (21-32); CHLORIDE 105 mmol/L (98-107); COR CA(FOR HYPOALB) 11.6 mg/dL (8.5-10.1); COR NA(FOR HYPERGLY) 142 mmol/L (136-145); CREATININE 0.61 mg/dL (0.70-1.30); SODIUM 141 mmol/L (136-145); TOTAL PROTEIN 6.4 g/dL (6.4-8.2); eGFR NON BLACK RACES > 60 (>60)
[2021-10-27] MEDS: VITAMIN D3 25 mcg (1,000 UNITS) PO SCH (08:15)
[2021-10-27] MEDS: PERCOCET TAB 5/325 MG PO SCH ×2 (08:15→13:36)
[2021-10-27] MEDS: ALOGLIPTIN 25 MG PO SCH (08:15)
[2021-10-27] MEDS: XARELTO PO SCH (08:15)
[2021-10-27] MEDS: REMDESIVIR 100 MG in NS 250 ML IV 250 ML IV SCH (08:54)
[2021-10-27] MEDS: FLOMAX PO SCH (08:54)
[2021-10-27] MEDS: GLUCOTROL PO SCH (08:54)
[2021-10-27] MEDS: TENORMIN PO SCH (08:54)
[2021-10-27] MEDS: VITAMIN A PO SCH (08:55)
[2021-10-27] MEDS: VITAMIN C PO SCH (08:55)
[2021-10-27] MEDS: PULMICORT NEB TX 0.5 MG NEB SCH (09:15)
--- NOTE | 2021-10-27 12:23 | W.DIS.FURT ---
Summary of Discharge Discharge Summary of Date Date of Exam: 10/27/21 Admission Date Date of Admission: 10/25/21 Admission Diagnosis Hospital Course: Mr Garcia is a 66y/o male with a PMH of HTN, Type 2 DM and PE presented with worsening cough, fever and generalized weakness. He did a at home covid test today which was positive. He reports being sick for the past 2 days. Denies known exposure. Denies sputum, SOB or chest pain. He reports feeling weak with any exertion and not able to walk without assistance for the past week. 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 He had biopsy and PET scan done earlier this week with Dr Baez, awaiting results. Patient has been having work-up for this leg mass for the past 4-6 weeks. [facility]. He reports wt loss 30-40 lbs in the past 4-6 weeks. He reports normal appetite, denies N/V/D. He is currently on room air with sats above 95%. Patient denies prev hx of COVID infection, he is fully vaccinated. In the ER, CXR was normal, CTA was negative for PE or any infiltrate. He was admitted to ICU with covid protocol. He was started on IV Remdesivir, nebs, pulmicort and IS. He did not require any oxygen. Dr Baez was also consulted and recommended to continue treating covid infection and will plan on doing surgery the following week for his upper leg mass. Patient did well, labs were monitored daily and electrolytes replaced as needed. PT/OT was also consulted and patient was able to ambulate and transfer with assistance. Patient was noted to have anemia, denied active bleeding. His iron was low so he was started on iron replacement. He was stable for discharge. He will f/u with Dr Baez as scheduled. Vital Signs: Vital Signs (72 hours) 10/25/21 12:00 10/25/21 14:00 10/25/21 16:00 Temperature 100.0 F H 100.0 F H Pulse Rate Pulse Rate [Apical] 103 H 104 H 103 H Respiratory Rate 25 H 28 H 18 Blood Pressure [Right Arm] 110/72 107/62 108/67 O2 Sat by Pulse Oximetry 95 96 94 L 10/25/21 18:00 10/25/21 19:00 10/25/21 20:00 Temperature 100.3 F H Pulse Rate Pulse Rate [Apical] 98 H Respiratory Rate 16 17 24 Blood Pressure [Right Arm] 103/63 O2 Sat by Pulse Oximetry 95 10/25/21 20:25 10/25/21 22:00 10/26/21 00:00 Temperature 100.0 F H Pulse Rate 97 H Pulse Rate [Apical] 98 H 104 H Respiratory Rate 25 H 26 H Blood Pressure [Right Arm] 108/66 114/68 O2 Sat by Pulse Oximetry 95 91 L 92 L 10/26/21 00:30 10/26/21 01:30 10/26/21 02:00 Temperature 99.7 F H Pulse Rate Pulse Rate [Apical] 93 H Respiratory Rate 20 22 25 H Blood Pressure [Right Arm] 103/59 O2 Sat by Pulse Oximetry 93 L 10/26/21 04:00 10/26/21 05:45 10/26/21 06:00 Temperature 98.8 F Pulse Rate Pulse Rate [Apical] 100 H 103 H Respiratory Rate 23 24 23 Blood Pressure [Right Arm] 105/61 108/62 O2 Sat by Pulse Oximetry 93 L 94 L 10/26/21 06:45 10/26/21 09:02 10/26/21 09:22 Temperature 98.4 F Pulse Rate 105 H Pulse Rate [Apical] 104 H Respiratory Rate 24 22 Blood Pressure [Right Arm] 108/66 O2 Sat by Pulse Oximetry 96 96 10/26/21 10:32 10/26/21 11:32 10/26/21 12:03 Temperature 97.9 F Pulse Rate Pulse Rate [Apical] 87 Respiratory Rate 18 20 19 Blood Pressure [Right Arm] 94/57 O2 Sat by Pulse Oximetry 94 L 10/26/21 14:09 10/26/21 16:03 10/26/21 16:04 Temperature Pulse Rate 92 H Pulse Rate [Apical] Respiratory Rate 14 Blood Pressure [Right Arm] 107/66 O2 Sat by Pulse Oximetry 98 10/26/21 17:04 10/26/21 20:00 10/26/21 20:36 Temperature 98.7 F Pulse Rate 97 H Pulse Rate [Apical] 96 H Respiratory Rate 12 25 H Blood Pressure [Right Arm] 109/67 O2 Sat by Pulse Oximetry 96 96 10/26/21 22:00 10/26/21 23:00 10/27/21 00:00 Temperature 99.1 F Pulse Rate Pulse Rate [Apical] 92 H Respiratory Rate 22 22 21 Blood Pressure [Right Arm] 99/60 O2 Sat by Pulse Oximetry 92 L 10/27/21 04:00 10/27/21 05:13 10/27/21 08:15 Temperature 99.0 F Pulse Rate 100 H Pulse Rate [Apical] 101 H Respiratory Rate 19 16 Blood Pressure [Right Arm] 107/65 O2 Sat by Pulse Oximetry 96 94 L 10/27/21 09:15 10/27/21 10:36 Temperature 98.9 F Pulse Rate Pulse Rate [Apical] Respiratory Rate 16 Blood Pressure [Right Arm] O2 Sat by Pulse Oximetry 97 Labs: Laboratory Last Values WBC 6.9 X10^3/uL (3.6-10.0) 10/27/21 04:17 RBC 3.17 X10^6/uL (4.7-6.0) L 10/27/21 04:17 Hgb 8.5 g/dL (13.5-18.0) L 10/27/21 04:17 Hct 25.8 % (42.0-54.0) L 10/27/21 04:17 MCV 81.4 fL (80.0-100.0) 10/27/21 04:17 MCH 27.0 pg (27.0-34.0) 10/27/21 04:17 MCHC 33.1 g/dL (33.0-35.0) 10/27/21 04:17 RDW 16.0 % (11.6-16.5) 10/27/21 04:17 Plt Count 146 X10^3/uL (150.0-450.0) L 10/27/21 04:17 Plt Count Comment Cancelled 10/26/21 04:55 MPV 8.8 fL (7.4-11.0) 10/27/21 04:17 Neut % (Auto) 41.3 % (42.0-75.0) L 10/27/21 04:17 Lymph % (Auto) 20.1 % (21.0-51.0) L 10/27/21 04:17 Mckean % (Auto) 37.6 % (0.0-13.0) H 10/27/21 04:17 Eos % (Auto) 0.1 % (0.9-2.9) L 10/27/21 04:17 Baso % (Auto) 0.9 % (0.2-1.0) 10/27/21 04:17 Neut # (Auto) 2.8 x10^3/uL (2.2-4.8) 10/27/21 04:17 Lymph # (Auto) 1.4 X10^3/uL (1.3-2.9) 10/27/21 04:17 Mckean # (Auto) 2.6 x10^3/uL (0.3-0.8) H 10/27/21 04:17 Eos # (Auto) 0.0 x10^3/uL (0.0-0.2) 10/27/21 04:17 Baso # (Auto) 0.1 X10^3/uL (0.0-0.1) 10/27/21 04:17 Absolute Nucleated RBC 0.1 /100WBC 10/27/21 04:17 Total Counted Cancelled 10/26/21 04:55 Neutrophils % (Manual) Cancelled 10/26/21 04:55 Band Neutrophils % Cancelled 10/26/21 04:55 Lymphocytes % (Manual) Cancelled 10/26/21 04:55 Monocytes % (Manual) Cancelled 10/26/21 04:55 Eosinophils % (Manual) Cancelled 10/26/21 04:55 Basophils % (Manual) Cancelled 10/26/21 04:55 Metamyelocytes % Cancelled 10/26/21 04:55 Myelocytes % Cancelled 10/26/21 04:55 Promyelocytes % Cancelled 10/26/21 04:55 Nucleated RBCs Cancelled 10/26/21 04:55 Atypical Lymphocytes Cancelled 10/26/21 04:55 Blast Cells Cancelled 10/26/21 04:55 Smudge Cells Cancelled 10/26/21 04:55 Toxic Granulation Cancelled 10/26/21 04:55 Dohle Bodies Cancelled 10/26/21 04:55 Yanely Rods Cancelled 10/26/21 04:55 Plt Clumps, EDTA Cancelled 10/26/21 04:55 Giant Platelets Cancelled 10/26/21 04:55 Plt Morphology Comment Cancelled 10/26/21 04:55 RBC Morphology Cancelled 10/26/21 04:55 Dimorphic RBCs Cancelled 10/26/21 04:55 Polychromasia Cancelled 10/26/21 04:55 Hypochromasia Cancelled 10/26/21 04:55 Poikilocytosis Cancelled 10/26/21 04:55 Basophilic Stippling Cancelled 10/26/21 04:55 Anisocytosis Cancelled 10/26/21 04:55 Microcytosis Cancelled 10/26/21 04:55 Macrocytosis Cancelled 10/26/21 04:55 Spherocytes Cancelled 10/26/21 04:55 Pappenheimer Bodies Cancelled 10/26/21 04:55 Sickle Cells Cancelled 10/26/21 04:55 Target Cells Cancelled 10/26/21 04:55 Tear Drop Cells Cancelled 10/26/21 04:55 Ovalocytes Cancelled 10/26/21 04:55 Stomatocytes Cancelled 10/26/21 04:55 Helmet Cells Cancelled 10/26/21 04:55 [place] Bodies Cancelled 10/26/21 04:55 [place] Rings Cancelled 10/26/21 04:55 [place] Cells Cancelled 10/26/21 04:55 Crenated Cell Cancelled 10/26/21 04:55 Acanthocytes (Spur) Cancelled 10/26/21 04:55 Rouleaux Cancelled 10/26/21 04:55 Schistocytes Cancelled 10/26/21 04:55 D-Dimer 2.55 ug/ml (0.0-0.57) H* 10/25/21 11:45 Sodium 141 mmol/L (136-145) 10/27/21 04:17 Corrected Sodium 142 mmol/L (136-145) 10/27/21 04:17 Potassium 3.8 mmol/L (3.5-5.1) 10/27/21 04:17 Chloride 105 mmol/L (98-107) 10/27/21 04:17 Carbon Dioxide 28.3 mmol/L (21-32) 10/27/21 04:17 BUN 11 mg/dL (7-18) 10/27/21 04:17 Creatinine 0.61 mg/dL (0.70-1.30) L 10/27/21 04:17 Est GFR (MDRD) Af Amer > 60 (>60) 10/27/21 04:17 Est GFR (MDRD) Non-Af > 60 (>60) 10/27/21 04:17 Glucose 121 mg/dL (65-99) H 10/27/21 04:17 POC Glucose (mg/dL) 194 mg/dL (65-99) H 10/27/21 11:07 Calcium 9.7 mg/dL (8.5-10.1) 10/27/21 04:17 Corrected Calcium 11.6 mg/dL (8.5-10.1) H 10/27/21 04:17 Iron 23 ug/dL (50-175) L 10/25/21 11:45 Transferrin 156 mg/dL (202-364) L 10/25/21 11:45 Ferritin 3486 ng/mL (26-388) H 10/25/21 11:45 Total Bilirubin 0.20 mg/dL (0.2-1.0) 10/27/21 04:17 AST 31 Units/L (15-37) 10/27/21 04:17 ALT 16 Units/L (12-78) 10/27/21 04:17 Alkaline Phosphatase 204 Units/L (46-116) H 10/27/21 04:17 Creatine Kinase 27 Units/L (39-308) L 10/25/21 11:45 CK-MB (CK-2) < 1.0 ng/mL (0-4.0) 10/25/21 11:45 CK/CKMB % Calc 3.7 % (<4) 10/25/21 11:45 Troponin I High Sens < 4.0 ng/L (4.0-60.0) L 10/25/21 11:45 C-Reactive Protein 230.70 mg/L (0-3.0) H 10/26/21 04:55 Total Protein 6.4 g/dL (6.4-8.2) 10/27/21 04:17 Albumin 1.6 g/dL (3.4-5.0) L 10/27/21 04:17 Globulin 4.8 g/dL (2.5-4.5) H 10/27/21 04:17 Albumin/Globulin Ratio 0.3 Ratio (1.1-2.1) L 10/27/21 04:17 Vitamin B12 831 pg/mL (193-986) 10/25/21 11:45 Folate 6.2 ng/mL (>8.6) L 10/25/21 11:45 Reason For Visit: COVID + Discharge Date Discharge Date: 09/26/21 Discharge Diagnosis All Active Problems (Updated 10/25/21 @ 21:06 by Guerrero Baez) COVID-19 (Acute) Sarcoma (Acute) Type 2 diabetes mellitus (Acute) HTN (hypertension) (Acute) History of pulmonary embolus (PE) (Acute) Leg mass (Acute) Anemia (Acute) Generalized weakness (Acute) Plan of Treatment: Continue with present treatment and follow up plan. Pt is to keep follow up appointment as instructed and take medications as ordered. Discharge Medications Discharge Medications: Penicillins Allergy (Verified 10/25/21 12:53) CONTINUE taking the following medications alogliptin 25 mg PO DAILY 10/25/21 [History] atenolol 100 mg PO DAILY 10/25/21 [History] cetirizine 10 mg PO DAILY 10/25/21 [History] cholecalciferol (vitamin D3) 25 mcg PO DAILY 10/25/21 [History] cyclobenzaprine 10 mg PO TID PRN 10/25/21 [History] empagliflozin 25 mg PO DAILY 10/25/21 [History] glipizide 5 mg PO BID 10/25/21 [History] metformin 500 mg PO BID 10/25/21 [History] oxycodone-acetaminophen 1 tab PO Q6H 10/25/21 [History] rivaroxaban 10 mg PO DAILY 10/25/21 [History] tamsulosin 0.4 mg PO DAILY 10/25/21 [History] New Prescriptions albuterol sulfate 2 puff INHALATION Q4-6H PRN #6.7 g 10/27/21 [Rx] benzonatate 100 mg PO TID PRN 7 Days #15 cap 10/27/21 [Rx] dextromethorphan-guaifenesin 5 ml PO QID PRN 7 Days #100 ml 10/27/21 [Rx] ferrous gluconate 324 mg PO BIDWM 30 Days #60 tab 10/27/21 [Rx] Follow up and Referral Follow Up: 1 Week (Dr Baez) Discharge Disposition Discharge Disposition: Home Discharge Condition: Stable Discharge Plan Discharge Plan Hospital Course: Mr Garcia is a 66y/o male with a PMH of HTN, Type 2 DM and PE presented with worsening cough, fever and generalized weakness. He did a at home covid test today which was positive. He reports being sick for the past 2 days. Denies known exposure. Denies sputum, SOB or chest pain. He reports feeling weak with any exertion and not able to walk without assistance for the past week. 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 He had biopsy and PET scan done earlier this week with Dr Baez, awaiting results. Patient has been having work-up for this leg mass for the past 4-6 weeks. [facility]. He reports wt loss 30-40 lbs in the past 4-6 weeks. He reports normal appetite, denies N/V/D. He is currently on room air with sats above 95%. Patient denies prev hx of COVID infection, he is fully vaccinated. In the ER, CXR was normal, CTA was negative for PE or any infiltrate. He was admitted to ICU with covid protocol. He was started on IV Remdesivir, nebs, pulmicort and IS. He did not require any oxygen. Dr Baez was also consulted and recommended to continue treating covid infection and will plan on doing surgery the following week for his upper leg mass. Patient did well, labs were monitored daily and electrolytes replaced as needed. PT/OT was also consulted and patient was able to ambulate and transfer with assistance. Patient was noted to have anemia, denied active bleeding. His iron was low so he was started on iron replacement. He was stable for discharge. He will f/u with Dr Baez as scheduled. Patient Disposition: 01 HOME, SELF-CARE Condition: Stable Health Concerns: Post Hospitalization: new medications and changes needed to prevent readmission or further decline. Pt educated and given instructions on all concerns. Care Plan Goals: Problem: Respiratory Complications Goal: Improved Uncomplicated Respiratory Status Instructions: Follow provided instructions. Follow up with primary physician as directed. Contact primary care physician or report to the closest Emergency Room if condition worsens. Plan of Treatment: Continue with present treatment and follow up plan. Pt is to keep follow up appointment as instructed and take medications as ordered. Prescriptions: New dextromethorphan-guaifenesin 10-100 mg/5 mL Liquid 5 ml PO QID PRN7 Days Qty: 100 RF: 0 ferrous gluconate 324 mg (38 mg iron) Tablet 324 mg PO BIDWM 30 Days Qty: 60 RF: 1 benzonatate 100 mg Capsule 100 mg PO TID PRN7 Days Qty: 15 RF: 0 albuterol sulfate 90 mcg/actuation HFA aerosol inhaler 2 puff inhalation Q4-6H PRN (Reason: shortness of breath or wheezing) Qty: 6.7 RF: 1 Continued cyclobenzaprine 10 mg Tablet 10 mg PO TID PRNRF: 0 metformin 500 mg Tablet 500 mg PO BID RF: 0 cetirizine 10 mg Tablet 10 mg PO DAILY RF: 0 atenolol 100 mg Tablet 100 mg PO DAILY RF: 0 oxycodone-acetaminophen 5-325 mg tablet 1 tab PO Q6H RF: 0 tamsulosin 0.4 mg Capsule 0.4 mg PO DAILY RF: 0 glipizide 5 mg Tablet 5 mg PO BID RF: 0 cholecalciferol (vitamin D3) 25 mcg (1,000 unit) Tablet 25 mcg PO DAILY RF: 0 rivaroxaban 10 mg Tablet 10 mg PO DAILY RF: 0 alogliptin 25 mg Tablet 25 mg PO DAILY RF: 0 empagliflozin 25 mg Tablet 25 mg PO DAILY RF: 0 Discontinued amlodipine 5 mg Tablet 5 mg PO BID RF: 0 rivaroxaban 10 mg Tablet 10 mg PO DAILY RF: 0 Orders to Discharge Patient Discharge Orders: Discharge (Routine); Ordered 10/27/21 Ordered By: Kristy Quinteros Follow ups/Referrals Follow ups/Referrals: Guerrero Baez [STAFF PHYSICIAN] - 10/30/21 Instructions Instructions: Symptoms of Coronavirus - [facility] (11/20/2020), COVID-19 Frequently Asked Questions, How to Wear and Take Off Your Mask - [facility] (12/28/2020), When You've Been Fully Vaccinated: How to Protect Yourself and Others - [facility] (02/08/2021), COVID-19, Things to Know about the COVID-19 Pandemic - [facility] (12/13/2020), COVID-19: What Your Test Results Mean - [facility] (02/26/2020), COVID- 19: How to Protect Yourself and Others - [facility], COVID-19: Quarantine vs. Isolation - [facility] (09/14/2020), COVID-19: What to Do if You Are Sick - [facility] (09/28/2020) Activity Restrictions/Additional Instructions: Do not take amlodipine until blood pressure above 120/80. Check blood pressure daily. Follow up with Dr Baez as scheduled, need a repeat CBC to check Hemoglobin Check with Dr Baez when you need to stop taking Xarelto prior to surgery. Stand Alone Forms: Excuse From Work or School, Precautions for COVID19, [facility], Patient Portal, Social Distancing
[2021-10-27 13:00] LABS: PLATELET MORPHOLOGY COMMENT NORMAL (NORMAL)
[2021-10-27 13:01] LABS: METAMYELOCYTES % 2; MYELOCYTES % 2
[2021-10-27] MEDS ORDERED: FERROUS GLUCONATE PO SCH (17:00)
== END 2021-10-27 14:18 | disposition home or self-care (01) ==
LOC: ICU
PROVIDERS: ADMIT Internal Medicine; ATTEND Internal Medicine

== ENCOUNTER 2021-11-05 07:46 | Inpatient (IN) ==
[2021-11-05] MEDS ORDERED: ANCEF VIAL 1 GRAM ONE (08:05)
[2021-11-05] MEDS ORDERED: NS 1,000 ML IV 1,000 ML ONE (08:05)
[2021-11-05] MEDS ORDERED: FENTANYL VIAL INJ 100 mcg ONE (08:20)
[2021-11-05] MEDS ORDERED: XYLOCAINE-MPF 1% ONE (08:20)
[2021-11-05] MEDS ORDERED: MARCAINE 0.5% ONE (08:29)
[2021-11-05 08:33] VITALS: BMI 24.8
[2021-11-05] MEDS ORDERED: XYLOCAINE 2 % (PLAIN) ONE (08:44)
[2021-11-05] MEDS ORDERED: NEO-SYNEPHRINE INJ ONE (08:44)
[2021-11-05] MEDS ORDERED: VERSED ONE (08:44)
[2021-11-05] MEDS ORDERED: MARCAINE SPINAL ONE (08:44)
[2021-11-05] MEDS ORDERED: DIPRIVAN VIAL ONE (08:44)
[2021-11-05] MEDS ORDERED: KETAMINE HCL ONE (08:44)
[2021-11-05] MEDS ORDERED: REGLAN INJ 10 MG VIAL IVP PRN (10:26)
[2021-11-05] MEDS ORDERED: ZOFRAN INJ 4 MG VIAL IVP PRN (10:26)
[2021-11-05] MEDS ORDERED: BENADRYL INJ 50 MG VIAL IVP PRN (10:26)
[2021-11-05] MEDS ORDERED: PHENERGAN INJ 25 MG IM PRN (10:26)
[2021-11-05] MEDS ORDERED: BARHEMSYS INJ IVP PRN (10:26)
[2021-11-05] MEDS ORDERED: DILAUDID INJ ONE (10:39)
[2021-11-05] MEDS: DILAUDID INJ IVP PRN ×4 (10:40→20:45)
--- NOTE | 2021-11-05 10:41 | OR.IMMED ---
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 Post-Op Diagnosis: same Procedure: Wide excision sarcoma left thigh with layered closure and wound vacuum placement Description of Procedure: see operative summary Surgeon/Sales Service Route Manager: Nestor Findings: As above , mass 25x 25 x10 cm , deep to vasta medialis muscle Specimens Removed: Fibro sarcoma as described above Estimated Blood Loss: 150cc Drains: Aaron Bond (2 # 10 COBY drainsan wound vauum to the skin.) Complications: none Discharge Progress Notes: Observation and observe for bleeding, for pain control Condition: Stable Final Diagnosis: as above
[2021-11-05] MEDS: LR 1,000 ML IV 1,000 ML IV SCH ×2 (12:00→23:00)
[2021-11-05] MEDS: PERCOCET TAB 5/325 MG PO PRN ×3 (14:00→22:04)
[2021-11-05] MEDS: DUONEB 0.5 MG/3 MG (3 mL) NEB SCH ×3 (15:47→21:40)
[2021-11-06] MEDS: DUONEB 0.5 MG/3 MG (3 mL) NEB SCH ×6 (01:10→20:49)
[2021-11-06] MEDS: PERCOCET TAB 5/325 MG PO PRN ×6 (01:40→22:52)
[2021-11-06 06:33] LABS: BASOPHILS # (AUTO) 0.1 X10^3/uL (0.0-0.1); BASOPHILS % (AUTO) 0.4 % (0.2-1.0); HEMATOCRIT 25.7 % (42.0-54.0); HEMOGLOBIN 8.3 g/dL (13.5-18.0); LYMPHOCYTES % (AUTO) 14.2 % (21.0-51.0); MEAN CORPUSCULAR HEMOGLOBIN 26.4 pg (27.0-34.0); MEAN CORPUSCULAR HGB CONC 32.4 g/dL (33.0-35.0); MEAN CORPUSCULAR VOLUME 81.4 fL (80.0-100.0); MEAN PLATELET VOLUME 8.8 fL (7.4-11.0); MONOCYTES # (AUTO) 3.3 x10^3/uL (0.3-0.8); MONOCYTES % (AUTO) 23.7 % (0.0-13.0); NEUTROPHILS # (AUTO) 8.7 x10^3/uL (2.2-4.8); NEUTROPHILS % (AUTO) 61.7 % (42.0-75.0); RED BLOOD COUNT 3.15 X10^6/uL (4.7-6.0); RED CELL DISTRIBUTION WIDTH 16.6 % (11.6-16.5); WHITE BLOOD COUNT 14.1 X10^3/uL (3.6-10.0)
[2021-11-06 07:24] LABS: BAND NEUTROPHILS % 5 % (0-10); METAMYELOCYTES % 2; MYELOCYTES % 2; PLATELET MORPHOLOGY COMMENT NORMAL (NORMAL)
[2021-11-06 07:25] LABS: ANISOCYTOSIS SLIGHT; HYPOCHROMASIA SLIGHT
[2021-11-06] MEDS: NORVASC TAB 5 MG PO SCH (08:39)
[2021-11-06] MEDS: FLOMAX PO SCH (08:39)
[2021-11-06] MEDS: DILAUDID INJ IVP PRN ×2 (08:40→12:43)
[2021-11-06] MEDS: TENORMIN PO SCH (08:40)
[2021-11-06] MEDS: LOVENOX INJ 40 MG SYR SC SCH (09:24)
--- NOTE | 2021-11-06 10:34 | DR.OPNOTE ---
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 Time out for the procedure obtained. Long vertical incision made over the mass of the anterior left thigh . Electrocautery was used to divide the subcutaneous tissue and the vasta intermedius muscle encountering this encapsulated Mass. Blunt and sharp dissection used to free up the mass . I t was not infiltrating the surrounding muscular layers. Identified blood vessels were divided between 3-0 silk ties and divided. Once the mass was removed hemostasis obtained by using suture ligatures of 3-0 silk and electrocautery as well as Surgicel placed in the bottom of the wound. There was no bony involvement and there was no major vessel involved with this. Stab incisions made on either side of the incision in the distal left thigh and flat number 10 Aaron-Bond drains were tunneled down to the depth of the wound and positioned . Both drains secured to the skin with interrupted silk sutures. Clips had been placed to delineate the cavity that this mass occupied. Vasta muscle layer closed with running 0-Vicryl. Subcutaneous tissue closed with running 3- Vicryl sutures. Skin closed with skin gary. Adhesive sheets from the wound vacuum place on either side of the incision. Black foam placed over the incision and then covered with adhesive sheet. 2 cm square area over the foam open by removing the adhesive and the circular trackpad applied to this and the entire wound placed to 150 mm of Hg of suction through the wound vacuum. The patient was taken to PACU in good condition. . Type of Anesthesia: Spinal Anesthetic Findings: large mass measuring 25 x 25 x 12 CM the left anterior lateral thigh. It appears well contained with no infiltration of adjacent muscles. Specimen/Pathology: Entire Mass sent for permanent pathology Type of Fluids Used:: Lactated Ringers EBL: 150cc Drains/Tubes Placed: Aaron Bond (COBY x 2 ) Drains/Tubes Comment: Wound vacuum placed over the closed left thigh wound Complications:: none Needle/Sponge Count:: correct Disposition/Condition: Pt. tolerated procedure without difficulty. Taken to PACU in stable condition.
[2021-11-06] MEDS: LR 1,000 ML IV 1,000 ML IV SCH (12:20)
--- NOTE | 2021-11-06 17:05 | NOTE.SOAP ---
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 Doing well. Make a plane is pain of the incision. Objective Data Temperature: 98.1 F Pulse Rate: 102 Respiratory Rate: 20 Blood Pressure: 104/65 O2 Sat by Pulse Oximetry: 97 Objective Data: HgB 8.3. Incision clean and dry. Aaron Bond drain with moderate output of Old Blood. Wound vacuum in place with no drainage. No redness of the wound. Assessment Assessment: Postoperative day one after resection of large liposarcoma left anterior thigh. Doing well . Plan Plan: Physical Therapy and ambulation with pain. Most likely will need a walker. Plan to discharge home when [facility] wound vacuum device is available .Patient will be discharged with wound vacuum and Aaron Bond drains in place. Will need consultation to consider adjuvant therapy.
[2021-11-06] MEDS: NovoLIN R (or HumuLIN R) SC PRN (20:11)
[2021-11-07] MEDS: DUONEB 0.5 MG/3 MG (3 mL) NEB SCH ×4 (04:29→13:49)
[2021-11-07] MEDS: PERCOCET TAB 5/325 MG PO PRN ×2 (05:04→12:02)
[2021-11-07] MEDS: FLOMAX PO SCH (08:12)
[2021-11-07] MEDS: NORVASC TAB 5 MG PO SCH (08:12)
[2021-11-07] MEDS: LOVENOX INJ 40 MG SYR SC SCH (08:12)
[2021-11-07] MEDS: TENORMIN PO SCH (08:12)
[2021-11-07] MEDS: NovoLIN R (or HumuLIN R) SC PRN (12:02)
[2021-11-07 12:08] VITALS: BP 116/72
--- NOTE | 2021-11-07 13:47 | W.DIS.FURT ---
Summary of Discharge Discharge Summary of Date Date of Exam: 11/07/21 Admission Date Date of Admission: 11/05/21 Admission Diagnosis Hospital Course: 66 year old male who had presented originally with a large mass to the upper anterior lateral left thigh. 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 Prior to our plan to resect this he developed a diagnosis of Covid and was treated in the ICU and discharged home. 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 He has two Aaron Bond drains in place and an external wound vacuum. He has done well. Post -op hemoglobin is 8. 3. He has been undergoing physical therapy and complains of pain in the left leg but is able to use it and walk with a walker. He will be discharged home today on his usual home medications to include Xarelto which he is on for a history of DVT . He also will be given a prescription for Percocet 5 mg tablets 1 to 2 tablets every 6 hours PRN pain, #40 . I will see him in follow up in one week in the office. At that time we will make referral to medical oncology. I suspect he will require chemotherapy and radiation therapy due to the large size of this mass. Currently it is at least a stage 2. This could change depending on the differentiation of the tumor itself. His family will be instructed on how to care for the drains and the wound vacuum. Most likely all of these will be removed when I see him in follow up next week. Vital Signs: Vital Signs (72 hours) 11/05/21 08:34 11/05/21 10:23 11/05/21 10:28 Temperature 97.6 F 97.3 F L Pulse Rate 127 H 118 H 115 H Pulse Rate [Left Radial] Respiratory Rate 19 18 18 Blood Pressure 145/85 116/66 114/68 Blood Pressure [Right Arm] O2 Sat by Pulse Oximetry 96 99 99 11/05/21 10:33 11/05/21 10:38 11/05/21 10:40 Temperature Pulse Rate 116 H 116 H Pulse Rate [Left Radial] Respiratory Rate 18 18 18 Blood Pressure 111/67 115/72 Blood Pressure [Right Arm] O2 Sat by Pulse Oximetry 99 100 11/05/21 10:43 11/05/21 10:48 11/05/21 10:53 Temperature Pulse Rate 114 H 114 H 114 H Pulse Rate [Left Radial] Respiratory Rate 18 18 18 Blood Pressure 106/71 113/71 108/66 Blood Pressure [Right Arm] O2 Sat by Pulse Oximetry 99 98 99 11/05/21 10:58 11/05/21 11:03 11/05/21 11:08 Temperature Pulse Rate 114 H 114 H 113 H Pulse Rate [Left Radial] Respiratory Rate 18 18 18 Blood Pressure 107/82 110/72 103/68 Blood Pressure [Right Arm] O2 Sat by Pulse Oximetry 99 99 99 11/05/21 11:10 11/05/21 11:33 11/05/21 11:47 Temperature 97.6 F Pulse Rate Pulse Rate [Left Radial] 112 H Respiratory Rate 18 16 16 Blood Pressure Blood Pressure [Right Arm] 108/60 O2 Sat by Pulse Oximetry 95 11/05/21 12:05 11/05/21 12:20 11/05/21 12:25 Temperature 97.0 F L 97.8 F Pulse Rate Pulse Rate [Left Radial] 105 H 106 H Respiratory Rate 16 16 16 Blood Pressure Blood Pressure [Right Arm] 108/66 110/68 O2 Sat by Pulse Oximetry 97 98 11/05/21 12:35 11/05/21 12:50 11/05/21 12:55 Temperature 97.6 F 97.4 F L Pulse Rate Pulse Rate [Left Radial] 104 H 109 H Respiratory Rate 14 14 16 Blood Pressure Blood Pressure [Right Arm] 104/67 107/67 O2 Sat by Pulse Oximetry 97 97 11/05/21 13:50 11/05/21 14:00 11/05/21 14:50 Temperature 97.4 F L 97.6 F Pulse Rate Pulse Rate [Left Radial] 113 H 105 H Respiratory Rate 16 16 16 Blood Pressure Blood Pressure [Right Arm] 107/69 111/70 O2 Sat by Pulse Oximetry 96 97 11/05/21 15:00 11/05/21 15:30 11/05/21 15:50 Temperature 97.6 F Pulse Rate Pulse Rate [Left Radial] 104 H Respiratory Rate 16 16 16 Blood Pressure Blood Pressure [Right Arm] 110/68 O2 Sat by Pulse Oximetry 97 11/05/21 16:50 11/05/21 17:55 11/05/21 18:01 Temperature 97.7 F Pulse Rate 100 H Pulse Rate [Left Radial] 102 H Respiratory Rate 16 16 Blood Pressure Blood Pressure [Right Arm] 121/72 O2 Sat by Pulse Oximetry 97 97 11/05/21 19:01 11/05/21 20:00 11/05/21 20:45 Temperature 98.5 F Pulse Rate Pulse Rate [Left Radial] 119 H Respiratory Rate 16 18 16 Blood Pressure Blood Pressure [Right Arm] 113/72 O2 Sat by Pulse Oximetry 98 11/05/21 21:15 11/05/21 21:40 11/05/21 22:04 Temperature Pulse Rate 89 Pulse Rate [Left Radial] Respiratory Rate 16 16 Blood Pressure Blood Pressure [Right Arm] O2 Sat by Pulse Oximetry 97 11/05/21 23:03 11/05/21 23:56 11/06/21 01:40 Temperature 98.7 F Pulse Rate Pulse Rate [Left Radial] 116 H Respiratory Rate 16 16 16 Blood Pressure Blood Pressure [Right Arm] 118/69 O2 Sat by Pulse Oximetry 97 11/06/21 01:41 11/06/21 02:35 11/06/21 03:11 Temperature 98.6 F 98.8 F Pulse Rate Pulse Rate [Left Radial] 116 H Respiratory Rate 18 16 Blood Pressure Blood Pressure [Right Arm] 118/67 O2 Sat by Pulse Oximetry 95 11/06/21 05:30 11/06/21 06:25 11/06/21 08:00 Temperature 98.9 F Pulse Rate Pulse Rate [Left Radial] 118 H Respiratory Rate 18 18 18 Blood Pressure Blood Pressure [Right Arm] 125/79 O2 Sat by Pulse Oximetry 96 11/06/21 08:40 11/06/21 09:05 11/06/21 09:30 Temperature Pulse Rate 89 Pulse Rate [Left Radial] Respiratory Rate 16 14 Blood Pressure Blood Pressure [Right Arm] O2 Sat by Pulse Oximetry 95 11/06/21 09:53 11/06/21 10:53 11/06/21 11:56 Temperature 98.1 F Pulse Rate Pulse Rate [Left Radial] 104 H Respiratory Rate 16 14 20 Blood Pressure Blood Pressure [Right Arm] 124/74 O2 Sat by Pulse Oximetry 96 11/06/21 12:43 11/06/21 13:13 11/06/21 14:30 Temperature Pulse Rate Pulse Rate [Left Radial] Respiratory Rate 16 16 16 Blood Pressure Blood Pressure [Right Arm] O2 Sat by Pulse Oximetry 11/06/21 15:30 11/06/21 15:38 11/06/21 17:04 Temperature 98.1 F 98.1 F Pulse Rate 102 H Pulse Rate [Left Radial] 102 H Respiratory Rate 16 20 20 Blood Pressure 104/65 Blood Pressure [Right Arm] 104/65 O2 Sat by Pulse Oximetry 97 97 11/06/21 19:09 11/06/21 20:00 11/06/21 20:09 Temperature 98.8 F Pulse Rate Pulse Rate [Left Radial] 109 H Respiratory Rate 16 18 16 Blood Pressure Blood Pressure [Right Arm] 110/63 O2 Sat by Pulse Oximetry 96 11/06/21 20:49 11/06/21 22:52 11/06/21 23:27 Temperature 97.9 F Pulse Rate 109 H Pulse Rate [Left Radial] 100 H Respiratory Rate 16 16 Blood Pressure Blood Pressure [Right Arm] 108/67 O2 Sat by Pulse Oximetry 95 96 11/06/21 23:50 11/07/21 03:07 11/07/21 05:04 Temperature 98.1 F Pulse Rate Pulse Rate [Left Radial] 93 H Respiratory Rate 16 16 16 Blood Pressure Blood Pressure [Right Arm] 111/69 O2 Sat by Pulse Oximetry 98 11/07/21 05:59 11/07/21 06:04 11/07/21 08:00 Temperature 98.1 F Pulse Rate 98 H Pulse Rate [Left Radial] 119 H Respiratory Rate 16 16 Blood Pressure Blood Pressure [Right Arm] 130/71 O2 Sat by Pulse Oximetry 97 97 11/07/21 08:55 11/07/21 12:00 11/07/21 12:02 Temperature 97.8 F Pulse Rate 91 H Pulse Rate [Left Radial] 98 H Respiratory Rate 16 16 Blood Pressure Blood Pressure [Right Arm] 116/72 O2 Sat by Pulse Oximetry 94 L 98 Labs: Laboratory Last Values WBC 14.1 X10^3/uL (3.6-10.0) H 11/06/21 05:47 RBC 3.15 X10^6/uL (4.7-6.0) L 11/06/21 05:47 Hgb 8.3 g/dL (13.5-18.0) L 11/06/21 05:47 Hct 25.7 % (42.0-54.0) L 11/06/21 05:47 MCV 81.4 fL (80.0-100.0) 11/06/21 05:47 MCH 26.4 pg (27.0-34.0) L 11/06/21 05:47 MCHC 32.4 g/dL (33.0-35.0) L 11/06/21 05:47 RDW 16.6 % (11.6-16.5) H 11/06/21 05:47 Plt Count 189 X10^3/uL (150.0-450.0) 11/06/21 05:47 Plt Count Comment Adequate (ADEQUATE) 11/06/21 05:47 MPV 8.8 fL (7.4-11.0) 11/06/21 05:47 Neut % (Auto) 61.7 % (42.0-75.0) 11/06/21 05:47 Lymph % (Auto) 14.2 % (21.0-51.0) L 11/06/21 05:47 [place] % (Auto) 23.7 % (0.0-13.0) H 11/06/21 05:47 Eos % (Auto) 0.0 % (0.9-2.9) L 11/06/21 05:47 Baso % (Auto) 0.4 % (0.2-1.0) 11/06/21 05:47 Neut # (Auto) 8.7 x10^3/uL (2.2-4.8) H 11/06/21 05:47 Lymph # (Auto) 2.0 X10^3/uL (1.3-2.9) 11/06/21 05:47 [place] # (Auto) 3.3 x10^3/uL (0.3-0.8) H 11/06/21 05:47 Eos # (Auto) 0.0 x10^3/uL (0.0-0.2) 11/06/21 05:47 Baso # (Auto) 0.1 X10^3/uL (0.0-0.1) 11/06/21 05:47 Absolute Nucleated RBC 0.1 /100WBC 11/06/21 05:47 Total Counted 100 11/06/21 05:47 Neutrophils % (Manual) 56 % (39-76) 11/06/21 05:47 Band Neutrophils % 5 % (0-10) 11/06/21 05:47 Lymphocytes % (Manual) 19 % (13-43) 11/06/21 05:47 Monocytes % (Manual) 16 % (4-9) H 11/06/21 05:47 Metamyelocytes % 2 11/06/21 05:47 Myelocytes % 2 11/06/21 05:47 Plt Morphology Comment Normal (NORMAL) 11/06/21 05:47 RBC Morphology Abnormal (NORMAL) 11/06/21 05:47 Hypochromasia Slight A 11/06/21 05:47 Anisocytosis Slight A 11/06/21 05:47 POC Glucose (mg/dL) 169 mg/dL (65-99) H 11/07/21 11:38 Tissue Pathology To follow 11/05/21 10:29 Reason For Visit: EXCISION OF MASS THIGH Discharge Date Discharge Date: 11/07/21 Discharge Diagnosis All Active Problems (Updated 11/07/21 @ 13:46 by Guerrero Baez) History of COVID-19 (Acute) Sarcoma (Acute) Type 2 diabetes mellitus (Chronic) HTN (hypertension) (Chronic) Leg mass (Acute) Anemia (Acute) Generalized weakness (Acute) Plan of Treatment: Continue with present treatment and follow up plan. Pt is to keep follow up appointment as instructed and take medications as ordered. Discharge Medications Discharge Medications: Penicillins Allergy (Verified 10/25/21 12:53) CONTINUE taking the following medications albuterol sulfate 2 puff INHALATION Q4H PRN 11/05/21 [History] amlodipine 5 mg PO BID 11/05/21 [History] benzonatate 100 mg PO TID PRN 11/05/21 [History] cetirizine 10 mg PO DAILY 11/05/21 [History] ferrous sulfate [Iron (ferrous sulfate)] 325 mg PO DAILY 11/05/21 [History] Follow up and Referral Follow Up: 1 Week () Discharge Disposition Assessment: Patient discharged home in stable condition . Discharge Disposition: stable s Discharge Condition: stable Discharge Plan Discharge Plan Hospital Course: 66 year old male who had presented originally with a large mass to the upper anterior lateral left thigh. 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 Prior to our plan to resect this he developed a diagnosis of Covid and was treated in the ICU and discharged home. 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 He has two Aaron Bond drains in place and an external wound vacuum. He has done well. Post -op hemoglobin is 8. 3. He has been undergoing physical therapy and complains of pain in the left leg but is able to use it and walk with a walker. He will be discharged home today on his usual home medications to include Xarelto which he is on for a history of DVT . He also will be given a prescription for Percocet 5 mg tablets 1 to 2 tablets every 6 hours PRN pain, #40 . I will see him in follow up in one week in the office. At that time we will make referral to medical oncology. I suspect he will require chemotherapy and radiation therapy due to the large size of this mass. Currently it is at least a stage 2. This could change depending on the differentiation of the tumor itself. His family will be instructed on how to care for the drains and the wound vacuum. Most likely all of these will be removed when I see him in follow up next week. Patient Disposition: 01 HOME, SELF-CARE Condition: Stable Health Concerns: Post Hospitalization: new medications and changes needed to prevent readmission or further decline. Pt educated and given instructions on all concerns. Care Plan Goals: Problem: Impaired Skin Integrity Goal: Improved Skin Integrity Instructions: Follow provided instructions. Follow up with primary physician as directed. Contact primary care physician or report to the closest Emergency Room if condition worsens.Problem: Altered nutrition Goal: Nutrition deficit will be minimized or prevented. Instructions: Follow provided instructions. Follow up with primary physician as directed. Contact primary care physician or report to the closest Emergency Room if condition worsens. Plan of Treatment: Continue with present treatment and follow up plan. Pt is to keep follow up appointment as instructed and take medications as ordered. Assessment: Patient discharged home in stable condition . Prescription drug monitoring program results: PDMP reviewed and no concerns identified Prescriptions: Continued cyclobenzaprine 10 mg Tablet 10 mg PO TID PRNRF: 0 metformin 500 mg Tablet 500 mg PO BID RF: 0 atenolol 100 mg Tablet 100 mg PO DAILY RF: 0 oxycodone-acetaminophen 5-325 mg tablet 1 tab PO Q6H PRNRF: 0 tamsulosin 0.4 mg Capsule 0.4 mg PO DAILY RF: 0 glipizide 5 mg Tablet 5 mg PO BID RF: 0 cholecalciferol (vitamin D3) 25 mcg (1,000 unit) Tablet 25 mcg PO DAILY RF: 0 rivaroxaban 10 mg Tablet 10 mg PO DAILY RF: 0 alogliptin 25 mg Tablet 25 mg PO DAILY RF: 0 empagliflozin 25 mg Tablet 25 mg PO QAM RF: 0 ferrous gluconate 324 mg (38 mg iron) Tablet 324 mg PO BIDWM 30 Days Qty: 60 RF: 1 albuterol sulfate 90 mcg/actuation HFA aerosol inhaler 2 puff INHALATION Q4H PRNRF: 0 cetirizine 10 mg Tablet 10 mg PO DAILY RF: 0 benzonatate 100 mg Capsule 100 mg PO TID PRNRF: 0 amlodipine 5 mg Tablet 5 mg PO BID RF: 0 ferrous sulfate [Iron (ferrous sulfate)] 325 mg (65 mg iron) Tablet 325 mg PO DAILY RF: 0 Follow ups/Referrals Follow ups/Referrals: [facility] [Primary Care Provider] - 1 WEEK Guerrero Baez [STAFF PHYSICIAN] - 1 WEEK Instructions Stand Alone Forms: Excuse From Work or School, Precautions for COVID19, [facility], Patient Portal, Social Distancing
== END 2021-11-07 15:30 | disposition home health service (06) | DRG 465 ==
LOC: OBS 07:46 → MED/SURG 07:58
PROVIDERS: ADMIT Surgery; ATTEND Surgery
PROC: [UNRECOGNIZED PROCEDURE] (2021-11-05 11:25)